=== PATIENT | male | born 1995 | race African-American/Black ===

== ENCOUNTER 2017-11-16 02:29 | Emergency (ER) | payer SELFPAY ==
[~2017-11-16] VITALS: Ht 180.3 cm; Wt 67.1 kg
[2017-11-16 02:30] VITALS: BP_SYST 143
[2017-11-16] MEDS ORDERED: TETRACAINE HCL 0.5% OPHTHALMIC DROPS 15 ML OP ONE (02:45)
[2017-11-16] MEDS ORDERED: ERYTHROMYCIN 0.5% EYE OINT 3.5 GM OP ONE (03:00)
[2017-11-16] MEDS ORDERED: ACETAMINOPHEN 650 MG SUPP.RECT RC ONE (03:00)
[2017-11-16] MEDS ORDERED: ACETAMINOPHEN 325 MG TABLET PO ONE (03:00)
[2017-11-16] MEDS ORDERED: ACETAMINOPHEN 325 MG TABLET ONE (03:04)
[2017-11-16] MEDS ORDERED: ERYTHROMYCIN BASE 0.5% EYE OINT...G. ONE (03:05)
[2017-11-16 03:30] VITALS: BP_SYST 131
[2017-11-16] MEDS ORDERED: GENTAMICIN SULFATE 0.3%, 3.5 GM EYE OINT. OP SCH (06:00)
== END 2017-11-16 03:30 | disposition home or self-care (01) ==
LOC: SED 02:29
DX: S00.12XA Contusion of left eyelid and periocular area, initial encounter (principal); W22.8XXA Striking against or struck by other objects, initial encounter; Y93.89 Activity, other specified; Y92.89 Other specified places as the place of occurrence of the external cause; Y99.8 Other external cause status
CPT/HCPCS: 99284